=== PATIENT | female | born 1960 | race Caucasian/White ===

== ENCOUNTER → 2016-09-25 | Outpatient (REF) | payer MEDICAID | LOC: M LAB REF 09:16 | PROVIDERS: ATTEND Physician Assistant | DX: J02.9 Acute pharyngitis, unspecified (principal) ==

== ENCOUNTER 2017-03-12 01:14 | Emergency (ER) | payer OTHER, SELFPAY ==
[~2017-03-12] VITALS: Ht 160 cm; Wt 120.0 kg
[2017-03-12] MEDS ORDERED: MECL-68 PO (04:42)
[2017-03-12] MEDS ORDERED: FLON27.5 (04:42)
[2017-03-12 04:47] VITALS: BP 114/71
== END 2017-03-12 04:56 | disposition home or self-care (01) ==
LOC: M ED 02:11
DX: H81.399 Other peripheral vertigo, unspecified ear (principal); H91.93 Unspecified hearing loss, bilateral

== ENCOUNTER → 2017-04-03 | Outpatient (CLI) | payer OTHER ==
[~2017-04-03] MED LIST: FLON27.5; MECL-68 PO
[2017-04-03 07:26] LABS: BASO % 0.6 % (0.0-1.0); EOS # 0.3 K/mm3 (0.0-0.50); EOS % 3.4 % (0.0-3.0); LYMPH # 3.1 K/mm3 (1.5-4.5); LYMPH % 33.9 % (24.0-44.0); MEAN CORPUSCULAR HEMOGLOBIN 28.7 pg (27.0-33.0); MEAN CORPUSCULAR HGB CONC 33.3 g/dl (32.0-36.5); MEAN CORPUSCULAR VOLUME 86.3 fl (80.0-96.0); MONO # 0.4 K/mm3 (0.0-0.8); MONO % 4.5 % (0.0-5.0); NEUTROPHILS # 4.9 K/mm3 (1.8-7.7); NEUTROPHILS % 55.7 % (36.0-66.0); RED CELL DISTRIBUTION WIDTH 13.2 % (11.5-14.5); WHITE BLOOD COUNT 8.8 K/mm3 (4.0-10.0)
[2017-04-03 07:53] LABS: ALBUMIN 3.6 GM/DL (3.2-5.2); ALKALINE PHOSPHATASE 80 U/L (45-117); ALT/SGPT 26 U/L (12-78); ANION GAP 8 MEQ/L (8-16); AST/SGOT 16 U/L (15-37); BILIRUBIN,TOTAL 0.6 MG/DL (0.2-1.0); BLOOD UREA NITROGEN 14 MG/DL (7-18); CALCIUM LEVEL 9.1 MG/DL (8.5-10.1); CARBON DIOXIDE LEVEL 28 MEQ/L (21-32); CHLORIDE LEVEL 103 MEQ/L (98-107); CHOLESTEROL LEVEL 207 MG/DL (<200); CREATININE FOR GFR 0.82 MG/DL (0.55-1.02); GLOMERULAR FILTRATION RATE > 60.0 (>51); GLUCOSE, FASTING 103 MG/DL (70-105); POTASSIUM SERUM 4.5 MEQ/L (3.5-5.1); SODIUM LEVEL 139 MEQ/L (136-145); TOTAL PROTEIN 7.2 GM/DL (6.4-8.2); TRIGLYCERIDES LEVEL 185 MG/DL (<150)
== END ==
LOC: M LAB 06:33
PROVIDERS: ATTEND Physician Assistant Medical
DX: Z00.00 Encounter for general adult medical examination without abnormal findings (principal)

== ENCOUNTER → 2017-04-20 | Outpatient (REF) | payer OTHER | LOC: M SFHCWAGY 15:43 | PROVIDERS: ATTEND Nurse Practitioner Women's Health | DX: Z12.4 Encounter for screening for malignant neoplasm of cervix (principal) ==

== ENCOUNTER → 2017-05-08 | Outpatient (CLI) | payer OTHER ==
--- NOTE | 2017-05-08 19:45 | REP ---
BASELINE MAMMOGRAM: CLINICAL HISTORY: Breast cancer in mother at age 70. MLO and CC views of both breasts are performed. Mild scattered fibroglandular tissue is seen in a fairly symmetric pattern bilaterally. There is an oval nodule in the upper outer quadrant of the right breast measuring 7 mm in diameter. Margins appear fairly well defined. There is probable intramammary lymph node in the upper outer quadrant of the left breast which appears to have a lucent center. No other mass or clustered microcalcifications are seen. IMPRESSION: ACR 0 incomplete. Oval 7 mm nodule upper outer quadrant of the right breast. Recommend spot compression views and ultrasound to further evaluate. BI-RADS/ACR category 0 mammogram, incomplete. Additional imaging and/or prior images are needed before a final assessment can be assigned. This mammogram was interpreted with the aid of an FDA-approved computer-aided detection system. The patient states she had a clinical breast exam in 04/2017. The patient letter being requested is M0.
== END ==
LOC: M WHC 16:06
PROVIDERS: ATTEND Nurse Practitioner Women's Health
DX: Z12.31 Encounter for screening mammogram for malignant neoplasm of breast (principal); Z80.3 Family history of malignant neoplasm of breast

== ENCOUNTER → 2017-05-11 | Outpatient (CLI) | payer OTHER ==
--- NOTE | 2017-05-11 16:43 | REP ---
DIAGNOSTIC MAMMOGRAM RIGHT BREAST WITH RIGHT BREAST ULTRASOUND: Diagnostic mammogram of the right breast is performed. Spot compression views are obtained and correlated with the recent mammogram of 05/08/2017. These confirm the presence of an oval nodule. Margins are primarily well-developed and smoothly marginated. Maximum diameter 7 mm. Real-time sonographic evaluation of the upper outer quadrant right breast performed. No definite sonographic correlate is visualized with no definite cystic or solid nodule. IMPRESSION: ACR 4 suspicious. Oval nodule 7 mm in diameter is well defined but cannot be seen by ultrasound. Recommend stereotactic biopsy. BI-RADS/ACR category 4 mammogram. Suspicious abnormality - biopsy should be considered. Usually requires biopsy. This mammogram was interpreted with the aid of an FDA-approved computer-aided detection system. The patient letter being requested is M4. Signed by Coleman Bettencourt MD 05/11/2017 05:27 P
== END ==
LOC: M RAD 15:07
PROVIDERS: ATTEND Nurse Practitioner Women's Health
DX: Z12.31 Encounter for screening mammogram for malignant neoplasm of breast (principal)
CPT/HCPCS: 76642; G0206

== ENCOUNTER → 2017-06-11 | Outpatient (CLI) | payer MEDICAID, OTHER, SELFPAY ==
[~2017-06-11] MED LIST changes: +LIDOCAINE 1% MDV 20ML VIAL As Ordered ONE
--- NOTE | 2017-06-11 15:12 | REP ---
ULTRASOUND RIGHT BREAST. Real-time sonographic evaluation of the right breast is performed. The nodule in the upper outer quadrant seen on the prior mammogram of 05/11/2017 is not visualized by ultrasound. Stereotactic biopsy will be performed. Signed by Coleman Bettencourt MD 06/12/2017 05:14 P
--- NOTE | 2017-06-11 15:24 | REP ---
RIGHT BREAST, POSTBIOPSY: Postbiopsy mammogram right breast performed. Metallic clip is seen adjacent to the nodule on the right CC view. However, on the right ML view, the clip appears to be deployed about 4 cm inferior to the nodule. Signed by Coleman Bettencourt MD 06/12/2017 05:15 P
--- NOTE | 2017-06-12 08:53 | REP ---
STEREOTACTIC BREAST BIOPSY OF THE RIGHT BREAST: The procedure was performed by AMANDA Love, under the direct supervision of Dr. Bettencourt. The procedure along with its risks, benefits, and complications were discussed with patient prior to the examination. Informed consent was obtained both verbally and written. Following universal protocol, patient and site verification was performed with a time out prior to the procedure. After obtaining informed consent, the patient was positioned seated and the target within the right breast was localized using mammographic imaging. A craniocaudal approach was used. The skin was cleansed with ChloraPrep. Local infiltrative anesthesia was achieved using 1% lidocaine. A small incision was made. The Mammotome biopsy device was inserted and accuracy of position was confirmed with pre-fire imaging. A total of six core biopsy specimens were obtained. A marker clip was placed at the biopsy site. Following the procedure, the wound was cleansed and compressed. Steri-Strips and sterile gauze were applied and the patient was given post biopsy instructions. Patient tolerated the procedure well and had no immediate complications. IMPRESSION: Uncomplicated right breast stereotactic biopsy. Reviewed by AMANDA Ramos 06/12/2017 03:24 PEdited and Signed by Coleman Bettencourt MD 06/12/2017 05:09 P
== END ==
LOC: M RADPRO 12:11
PROVIDERS: ATTEND Surgery
DX: D24.1 Benign neoplasm of right breast (principal); Z87.891 Personal history of nicotine dependence

== ENCOUNTER → 2017-07-26 | Outpatient (CLI) | payer OTHER ==
[~2017-07-26] MED LIST changes: -LIDOCAINE 1% MDV 20ML VIAL As Ordered ONE
[2017-07-26 07:58] LABS: BASO # 0.1 10^3/uL (0.0-0.2); BASO % 0.6 % (0.0-1.0); EOS # 0.3 10^3/uL (0.0-0.50); EOS % 3.2 % (0.0-3.0); IMMATURE GRANULOCYTE % 0.4 % (0-0); LYMPH # 2.7 10^3/uL (1.5-4.5); LYMPH % 31.8 % (24.0-44.0); MEAN CORPUSCULAR HEMOGLOBIN 28.9 pg (27.0-33.0); MEAN CORPUSCULAR HGB CONC 33.2 g/dl (32.0-36.5); MEAN CORPUSCULAR VOLUME 87.2 fl (80.0-96.0); MONO # 0.6 10^3/uL (0.0-0.8); MONO % 7.2 % (0.0-5.0); NEUTROPHILS # 4.9 10^3/uL (1.8-7.7); NEUTROPHILS % 56.8 % (36.0-66.0); PLATELET COUNT, AUTOMATED 320 10^3/uL (150-450); RED CELL DISTRIBUTION WIDTH 12.9 % (11.5-14.5); WHITE BLOOD COUNT 8.6 10^3/uL (4.0-10.0)
[2017-07-26 08:39] LABS: ALBUMIN 3.7 GM/DL (3.2-5.2); ALBUMIN/GLOBULIN RATIO 1.06 (1.00-1.93); ALKALINE PHOSPHATASE 80 U/L (45-117); ALT/SGPT 27 U/L (12-78); ANION GAP 6 MEQ/L (8-16); AST/SGOT 16 U/L (7-37); BILIRUBIN,TOTAL 0.6 MG/DL (0.2-1.0); BLOOD UREA NITROGEN 15 MG/DL (7-18); CALCIUM LEVEL 8.8 MG/DL (8.5-10.1); CARBON DIOXIDE LEVEL 29 MEQ/L (21-32); CHLORIDE LEVEL 105 MEQ/L (98-107); CHOLESTEROL LEVEL 201 MG/DL (<200); CREATININE FOR GFR 0.85 MG/DL (0.55-1.02); GLOMERULAR FILTRATION RATE > 60.0 (>51); GLUCOSE, FASTING 106 MG/DL (70-105); POTASSIUM SERUM 4.4 MEQ/L (3.5-5.1); SODIUM LEVEL 140 MEQ/L (136-145); TOTAL PROTEIN 7.2 GM/DL (6.4-8.2); TRIGLYCERIDES LEVEL 123 MG/DL (<150)
== END ==
LOC: M LAB 07:16
PROVIDERS: ATTEND Physician Assistant Medical
DX: E78.2 Mixed hyperlipidemia (principal)

== ENCOUNTER → 2018-03-18 | Outpatient (CLI) | payer OTHER | LOC: M WHC 08:57 | DX: N95.0 Postmenopausal bleeding (principal); R93.8 Abnormal findings on diagnostic imaging of other specified body structures | CPT/HCPCS: 76830 ==

== ENCOUNTER → 2020-03-14 | Outpatient (REF) | payer OTHER ==
[~2020-03-14] MED LIST changes: -MECL-68 PO; +MECL1TAB31 PO
== END ==
LOC: M LAB REF 16:01
PROVIDERS: ATTEND Physician Assistant
DX: R10.814 Left lower quadrant abdominal tenderness (principal)

== ENCOUNTER → 2020-03-22 | Outpatient (CLI) | payer OTHER ==
[~2020-03-22] MED LIST changes: +IBUP80TA PO; +PERCOCET PO
--- NOTE | 2020-03-22 14:19 | REP ---
PELVIC ULTRASOUND: Real-time sonographic evaluation of pelvis performed. Transabdominal and endovaginal technique is utilized. Bladder measures 4.5 x 3.1 x 2.6 cm. The uterus measures 7.1 x 5.1 x 5.9 cm. Once again, there is significant endometrial thickening with diffuse heterogeneity and lobulated margins of the endometrium. Maximum thickness is 24 mm. On the prior study of 03/18/2018, maximum thickness was 21 mm. The uterus is retroverted. Echogenic area on the right adjacent to the thickened endometrium measures 2.0 x 2.2 x 1.9 cm, within the myometrium. This has increased in size compared to the prior study. There is internal blood flow with Doppler evaluation. Anteriorly, there appears to be a small fibroid 1.6 x 1.1 x 1.1 cm. The ovaries are not visualized. There is mild free fluid. IMPRESSION: Thickened heterogeneous endometrium with a maximum AP thickness 24 mm, has mildly increased since prior study. There is also mild increase in size of the focal echogenic area adjacent to the right endometrial margin. Findings may indicate endometrial hyperplasia or neoplasm. Recommend endometrial sampling.
== END ==
LOC: M WHC 09:26
PROVIDERS: ATTEND Obstetrics & Gynecology
DX: R93.5 Abnormal findings on diagnostic imaging of other abdominal regions, including retroperitoneum (principal); N95.0 Postmenopausal bleeding

== ENCOUNTER 2020-04-21 06:35 | Day surgery (SDC) | payer OTHER ==
[~2020-04-21 06:35] MED LIST changes: -IBUP80TA PO; -PERCOCET PO
[2020-04-21] MEDS ORDERED: LIDOCAINE 2% 100MG/5ML SDV (FOR ANES.) ONE (06:49)
[2020-04-21] MEDS ORDERED: fentaNYL 100 MCG/2 ML INJECTION (J3010) ONE (06:49)
[2020-04-21] MEDS ORDERED: propofoL 200 MG/20 ML VIAL ONE (06:49)
[2020-04-21] MEDS ORDERED: KETOROLAC 60MG 2ML VIAL ONE (06:49)
[2020-04-21] MEDS ORDERED: ONDANSETRON 4MG/2ML VIAL ONE (06:49)
[2020-04-21] MEDS ORDERED: dexameTHASONE 4 MG/ML 1ML VIAL (J1100 PER 1MG) ONE (06:49)
[2020-04-21] MEDS ORDERED: MIDAZOLAM INJ 2MG/2ML VIAL (J2250 PER 1MG) ONE (06:49)
[2020-06-19 08:45] LABS: HEMATOCRIT 38.2 % (36.0-47.0); HEMOGLOBIN 12.4 g/dl (12.0-15.5); MEAN CORPUSCULAR HEMOGLOBIN 29.2 pg (27.0-33.0); MEAN CORPUSCULAR HGB CONC 32.5 g/dl (32.0-36.5); MEAN CORPUSCULAR VOLUME 89.9 fl (80.0-96.0); PLATELET COUNT, AUTOMATED 289 10^3/uL (150-450); RED BLOOD COUNT 4.25 10^6/uL (4.00-5.40)
--- NOTE | 2020-06-24 13:43 | RO ---
DATE OF OPERATION: 04/21/2020 INDICATIONS FOR PROCEDURE: Rehana is a 60-year-old female who presented to the OR with postmenopausal bleeding. After extensive counseling, the decision was made to proceed with dilation and curettage (D&C) hysteroscopy. PREOPERATIVE DIAGNOSIS: Postmenopausal bleeding. POSTOPERATIVE DIAGOSES: * Postmenopausal bleeding. * Large endometrial polyp; cannot rule out a fibroid. Slightly distorted cavity. PROCEDURES: * Dilation and curettage (D&C). * Hysteroscopy. * Polypectomy. ANESTHESIA: General. SURGEON: Leroy Barnes D.O. COMPLICATIONS: None. ESTIMATED BLOOD LOSS: 20 mL. SPECIMENS SENT TO THE LAB: Endometrial curetting and endometrial polyp. DESCRIPTION OF PROCEDURE: After obtaining informed consent, the patient was taken to the operating room where general anesthetic was found to be adequate. She was then prepped and draped in the usual sterile fashion in the dorsolithotomy position. At this point, a straight catheter of bladder was performed for approximately 100 mL of clear urine. We then placed a weighted speculum in the posterior next to the vagina. Using a Anderson retractor, the anterior lip of the cervix was then grasped with a single-toothed tenaculum. The uterus was sounded to approximately 7 cm in size. The cervix was serially dilated. A hysteroscope was inserted with the above-noted findings. At this point, the hysteroscope was removed. A polyp forceps was used. A polypectomy was performed. Then a sharp curettage of the endometrial lining was then done. Good hemostasis noted. Patient tolerated the procedure well. She was then transferred to the recovery room in stable condition. LAVERNE
== END 2020-04-21 09:57 | disposition home or self-care (01) ==
LOC: M SDC 06:35
PROVIDERS: ATTEND Obstetrics & Gynecology
DX: N84.0 Polyp of corpus uteri (principal); N85.00 Endometrial hyperplasia, unspecified; N95.0 Postmenopausal bleeding
CPT/HCPCS: 36415; 58558; 85027; 86850; 86900; 86901; 88305; J1100; J1885; J2250; J2405; J3010

== ENCOUNTER → 2020-06-11 | Outpatient (CLI) | payer OTHER ==
[~2020-06-11] MED LIST changes: +IBUP80TA PO; +PERCOCET PO
== END ==
LOC: M LABSMTC 09:28
PROVIDERS: ATTEND Anesthesiology
DX: Z01.812 Encounter for preprocedural laboratory examination (principal); Z20.828 Contact with and (suspected) exposure to other viral communicable diseases
CPT/HCPCS: C9803; U0003

== ENCOUNTER 2020-06-16 06:14 | Day surgery (SDC) | payer OTHER ==
[~2020-06-16] VITALS: Ht 157.5 cm; Wt 116.1 kg
[2020-06-16] VITALS (9 sets, daily range): BP systolic 106–131; BP diastolic 58–78
[~2020-06-16 06:14] MED LIST changes: +ACETAMINOPHEN *IV* 1,000 MG IV ONE; -IBUP80TA PO; +LR 1,000 ML IV ONE; -PERCOCET PO; +ceFAZolin SOD 2 GM in IV 1 EA IV ONE
[2020-06-16] MEDS ORDERED: FLUORESCEIN 10% (100MG/ML) 5 ML VIAL As Ordered ONE (06:41)
[2020-06-16] MEDS ORDERED: BUPIVACAINE/EPIN 0.25% 30 ML VIAL As Ordered ONE (06:41)
[2020-06-16 06:45] LABS: HEMATOCRIT 41.2 % (36.0-47.0); HEMOGLOBIN 13.5 g/dl (12.0-15.5); MEAN CORPUSCULAR HGB CONC 32.8 g/dl (32.0-36.5); MEAN CORPUSCULAR VOLUME 88.6 fl (80.0-96.0); PLATELET COUNT, AUTOMATED 315 10^3/uL (150-450); RED BLOOD COUNT 4.65 10^6/uL (4.00-5.40); WHITE BLOOD COUNT 9.2 10^3/uL (4.0-10.0)
[2020-06-16] MEDS ORDERED: MIDAZOLAM INJ 2MG/2ML VIAL (J2250 PER 1MG) As Ordered ONE (06:46)
[2020-06-16] MEDS ORDERED: ePHEDrine SULFATE 25 MG/5 ML(5MG/ML) SYRINGE As Ordered ONE (06:46)
[2020-06-16] MEDS ORDERED: PHENYLephrine HCL 500 MCG/5 ML (100MCG/ML) SYRINGE (J2370) As Ordered ONE (06:46)
[2020-06-16] MEDS ORDERED: fentaNYL 250 MCG/5 ML INJECTION (J3010) As Ordered ONE (06:46)
[2020-06-16] MEDS ORDERED: propofoL 200 MG/20 ML VIAL As Ordered ONE (06:47)
[2020-06-16] MEDS ORDERED: SUGAMMADEX SODIUM 500 MG/5 ML VIAL (BRIDION) As Ordered ONE (06:47)
[2020-06-16] MEDS ORDERED: ONDANSETRON 4MG/2ML VIAL As Ordered ONE (06:47)
[2020-06-16] MEDS ORDERED: ROCURONIUM BROMIDE 50 MG/5 ML VIAL As Ordered ONE (06:47)
[2020-06-16] MEDS ORDERED: LIDOCAINE 2% 100MG/5ML SDV (FOR ANES.) As Ordered ONE (06:47)
[2020-06-16] MEDS ORDERED: dexameTHASONE 4 MG/ML 1ML VIAL (J1100 PER 1MG) As Ordered ONE (06:47)
[2020-06-16 07:12] LABS: BLOOD UREA NITROGEN 11 MG/DL (7-18); CALCIUM LEVEL 9.2 MG/DL (8.8-10.2); CARBON DIOXIDE LEVEL 27 MEQ/L (21-32); CHLORIDE LEVEL 105 MEQ/L (98-107); CREATININE FOR GFR 0.85 MG/DL (0.55-1.30); GLOMERULAR FILTRATION RATE > 60.0 (>45); GLUCOSE, FASTING 100 MG/DL (70-100); SODIUM LEVEL 137 MEQ/L (136-145)
[2020-06-16] MEDS ORDERED: ACETAMINOPHEN 1000MG 100ML IV BTL (OFIRMEV) (J0131 PER 10MG) As Ordered ONE (07:54)
[2020-06-16] MEDS ORDERED: HYDROmorphone HCL 2 MG/ML 1ML VIAL (J1170) As Ordered ONE (08:26)
[2020-06-16] MEDS ORDERED: PERCOCET 5MG/325MG TAB PO PRN (09:15)
[2020-06-16] MEDS ORDERED: ONDANSETRON 4MG/2ML VIAL IV PRN ×2 (09:15→09:45)
[2020-06-16] MEDS ORDERED: PERCOCET PO (09:16)
[2020-06-16] MEDS ORDERED: IBUP80TA PO (09:16)
[2020-06-16] MEDS ORDERED: oxyCODONE 5MG TAB PO PRN (09:45)
[2020-06-16] MEDS ORDERED: LR 1,000 ML IV SCH (09:45)
[2020-06-16] MEDS ORDERED: fentaNYL 100 MCG/2 ML INJECTION (J3010) IV PRN (09:45)
[2020-06-16] MEDS ORDERED: METOCLOPRAMIDE INJ 10MG/2ML VIAL (J2765 PER 1) IV PRN (09:45)
[2020-06-16] MEDS: KETOROLAC 30 MG/ML 1ML VIAL IV SCH ×3 (09:53→21:48)
[2020-06-16] MEDS: MEPERIDINE INJ 25 MG/ML VIAL (J2175) IV PRN ×2 (09:54→10:00)
[2020-06-16] MEDS: LR 1,000 ML IV SCH ×2 (10:57→17:51)
[2020-06-16] MEDS: DOCUSATE SODIUM 100 MG CAP PO SCH ×2 (10:59→21:48)
[2020-06-17] MEDS: LR 1,000 ML IV SCH ×2 (00:39→09:03)
[2020-06-17 02:00] VITALS: BP 114/68
[2020-06-17] MEDS: KETOROLAC 30 MG/ML 1ML VIAL IV SCH (04:05)
[2020-06-17 06:00] VITALS: BP 132/79
[2020-06-17] MEDS: DOCUSATE SODIUM 100 MG CAP PO SCH (09:03)
[2020-06-17 10:00] VITALS: BP 122/59
[2020-06-17] MEDS ORDERED: IBUPROFEN 800 MG TAB PO SCH (12:00)
--- NOTE | 2020-06-22 14:27 | RO ---
DATE OF OPERATION: 06/16/2020 Rehana is a 60-year-old female with an extensive history of postmenopausal bleeding, found to have complex endometrial hyperplasia on a dilatation and curettage (D and C) specimen. She also has morbid obesity. After counseling, a decision was made to proceed with robotic-assisted total hysterectomy, bilateral salpingo-oophorectomy, and pelvic washing as well as cystoscopy. PREOPERATIVE DIAGNOSES: 1. Postmenopausal bleeding 2. Complex endometrial hyperplasia. 3. Obesity. POSTOPERATIVE DIAGNOSES: 1. Postmenopausal bleeding 2. Complex endometrial hyperplasia. 3. Obesity. 4. Large left ovarian cyst. PROCEDURES: 1. Robotic-assisted total hysterectomy. 2. Bilateral salpingo-oophorectomy. 3. Pelvic washing. 4. Cystoscopy. ANESTHESIA: General. SURGEON: Dr. Cannon STOCK MOVER: Lisa Edward COMPLICATIONS: None. ESTIMATED BLOOD LOSS: Less than 20 mL. FINDINGS: An enlarged uterus as well as an enlarged left ovarian cyst. Normal atrophic-appearing right ovary. On cystoscopy, bilateral ureteral jets noted. No evidence of any bladder injury noted. DESCRIPTION OF PROCEDURE: After obtaining informed consent, patient was taken to the operating room, where general anesthetic was found to be adequate. She was then draped and prepped in the usual sterile fashion in the dorsal lithotomy position. At this point, a Jain catheter was placed in the bladder for drainage. We then placed a speculum in the posterior fornix of the vagina using a Tabor retractor, the anterior lip of the cervix was then grasped with a single-tooth tenaculum. The uterus was sounded to approximately 9 cm in length. A UMI2 uterine manipulator was placed. Attention was then turned to the abdomen, where an 8 mm infraumbilical incision was made. Using the Veress needle, the abdomen was insufflated with CO2 gas to approximately 3.5 liters. We then placed two left lateral ports 8 mm in size for robotic arm, two in the assist port on the right side. An 8 mm lateral port was placed for robotic arm 1. Patient was then placed in steep Trendelenburg. The robot was brought to the patient's right side. The robot was docked in the usual fashion. Proper targeting was done after placement of the camera port. Then the remaining arms were then docked. We then placed a bipolar grasper in arm 2 and a vessel sealer in arm 1. I scrubbed and went to the surgeon console and began the surgery. The pelvis and abdomen were inspected thoroughly. Pelvic washing performed. We then identified the infundibulopelvic ligament, which was cauterized and cut using the vessel sealer. Serial bite was taken to remove the entire tube down to the uterosacral ligament. Anterior leaf of the broad ligament was dissected to create a bladder flap. The opposite side was done in similar fashion. The bladder was pushed completely out of the operative field. After making sure the arteries were secure, we then removed the vessel sealer, introduced an Endoshear, and anterior and posterior colpotomy was then performed. The uterus as well as both ovaries and tubes were removed through the vagina. The vaginal cuff was then closed in a running fashion using a 2-0 V-lock suture in a running fashion. The peritoneum over the vaginal cuff was also closed. Pelvis was copiously irrigated with normal saline and suctioned down. Then 1 mL of fluorescein was given by the anesthesiologist to assist in a cystoscopy. I then rescrubbed, went to the patient's bedside, retrograde filled the bladder with 250 mL of normal saline. Catheter was removed. Hysteroscope was inserted. Bilateral ureteral jets noted. No evidence of any bladder injury noted. At this point, the cystoscope was removed. Jain catheter was placed back in the bladder to drain the bladder. We turned our attention to the abdomen, where all the robotic trocars were removed, and the ports were closed using 3-0 Vicryl in subcuticular fashion. Then 0.25% Marcaine was placed at the sites for postoperative pain. Patient tolerated the procedure well. She was then transferred to the recovery room in stable condition. LAVERNE
== END 2020-06-17 14:36 | disposition home or self-care (01) ==
LOC: M SDC 06:14 → M MSPAV 10:52 → M SDC 06-17 14:36
PROVIDERS: ATTEND Obstetrics & Gynecology
DX: N95.0 Postmenopausal bleeding (principal); N85.00 Endometrial hyperplasia, unspecified; N84.0 Polyp of corpus uteri; D25.9 Leiomyoma of uterus, unspecified; N83.202 Unspecified ovarian cyst, left side; E66.9 Obesity, unspecified; Z87.891 Personal history of nicotine dependence
CPT/HCPCS: 36415; 58571; 80048; 85027; 86850; 86900; 86901; 88108; 88307; 88313; 96361; 96374; 96375; 96376; J0131; J0690; J1100; J1170; J1885; J2175; J2250; J2370; J2405; J3010; S2900

== ENCOUNTER 2021-09-24 11:19 | Emergency (ER) | payer OTHER ==
[~2021-09-24] VITALS: Ht 160 cm; Wt 122.3 kg
[~2021-09-24 11:19] MED LIST changes: -ACETAMINOPHEN *IV* 1,000 MG IV ONE; +IBUP80TA PO; -LR 1,000 ML IV ONE; +PERCOCET PO; -ceFAZolin SOD 2 GM in IV 1 EA IV ONE
[2021-09-24 13:18] LABS: BASO % 0.4 % (0.0-1.0); EOS # 0.2 10^3/uL (0.0-0.5); EOS % 1.6 % (0.0-3.0); HEMATOCRIT 39.4 % (36.0-47.0); LYMPH # 2.2 10^3/uL (1.5-5.0); LYMPH % 23.1 % (24.0-44.0); MEAN CORPUSCULAR HEMOGLOBIN 28.8 pg (27.0-33.0); MEAN CORPUSCULAR VOLUME 87.4 fl (80.0-96.0); MONO # 0.5 10^3/uL (0.0-0.8); MONO % 5.3 % (2.0-8.0); NEUTROPHILS # 6.5 10^3/uL (1.5-8.5); NEUTROPHILS % 69.3 % (36.0-66.0); PLATELET COUNT, AUTOMATED 305 10^3/uL (150-450); RED BLOOD COUNT 4.51 10^6/uL (4.00-5.40); WHITE BLOOD COUNT 9.4 10^3/uL (4.0-10.0)
[2021-09-24 13:41] LABS: ALBUMIN 3.7 GM/DL (3.2-5.2); ALT/SGPT 29 U/L (12-78); BILIRUBIN,DIRECT 0.1 MG/DL (0.0-0.2); BILIRUBIN,TOTAL 0.6 MG/DL (0.2-1.0); BLOOD UREA NITROGEN 13 MG/DL (7-18); CALCIUM LEVEL 9.1 MG/DL (8.8-10.2); CARBON DIOXIDE LEVEL 25 MEQ/L (21-32); CHLORIDE LEVEL 107 MEQ/L (98-107); CREATININE FOR GFR 0.84 MG/DL (0.55-1.30); GLOMERULAR FILTRATION RATE > 60.0 (>45); GLUCOSE, FASTING 109 MG/DL (70-100); LIPASE 36 U/L (73-393); POTASSIUM SERUM 4.1 MEQ/L (3.5-5.1); SODIUM LEVEL 138 MEQ/L (136-145); TOTAL PROTEIN 7.6 GM/DL (6.4-8.2)
[2021-09-24 17:18] VITALS: BP 187/88
[2021-09-25] MEDS ORDERED: PERC5TAB12 PO (06:54)
[2021-09-25] MEDS ORDERED: FLOM0.4C39 PO (06:54)
[2021-09-25] MEDS ORDERED: ZOFR4TAB16 PO (06:54)
== END 2021-09-24 17:21 | disposition home or self-care (01) ==
LOC: M ED 11:19
DX: N13.9 Obstructive and reflux uropathy, unspecified (principal); N20.0 Calculus of kidney; N28.1 Cyst of kidney, acquired; K76.0 Fatty (change of) liver, not elsewhere classified

== ENCOUNTER 2021-09-24 23:55 | Emergency (ER) | payer OTHER ==
[~2021-09-24] VITALS: Ht 160 cm; Wt 122.4 kg
[2021-09-24 23:57] VITALS: BP 138/80
[2021-09-25] MEDS ORDERED: PERC5TAB12 PO (06:54)
[2021-09-25] MEDS ORDERED: ZOFR4TAB16 PO (06:54)
[2021-09-25] MEDS ORDERED: FLOM0.4C39 PO (06:54)
== END 2021-09-25 07:03 | disposition home or self-care (01) ==
LOC: MERGE 23:55 → M ED 23:55
DX: N13.9 Obstructive and reflux uropathy, unspecified (principal); N20.0 Calculus of kidney; R10.9 Unspecified abdominal pain; R11.2 Nausea with vomiting, unspecified; Z87.891 Personal history of nicotine dependence

== ENCOUNTER → 2021-10-05 | Outpatient (CLI) | payer OTHER ==
[~2021-10-05] MED LIST changes: +FLOM0.4C39 PO; +PERC5TAB12 PO; +ZOFR4TAB16 PO
== END ==
LOC: M PLAIMG 08:55
PROVIDERS: ATTEND Physician Assistant
DX: N20.1 Calculus of ureter (principal)

== ENCOUNTER → 2021-10-19 | Outpatient (CLI) | payer OTHER | LOC: M PLAIMG 08:52 | PROVIDERS: ATTEND Physician Assistant | DX: N20.0 Calculus of kidney (principal) ==

== ENCOUNTER → 2021-10-19 | Outpatient (REF) | payer OTHER | LOC: M SMT 16:47 | PROVIDERS: ATTEND Physician Assistant | DX: N20.0 Calculus of kidney (principal) ==

== ENCOUNTER → 2021-10-24 | Outpatient (CLI) | payer OTHER | LOC: M PLAIMG 08:59 | PROVIDERS: ATTEND Physician Assistant | DX: N20.0 Calculus of kidney (principal) ==

== ENCOUNTER → 2021-11-04 | Outpatient (CLI) | payer OTHER ==
[2021-11-04 15:06] LABS: BASO # 0.1 10^3/uL (0.0-0.2); BASO % 0.6 % (0.0-1.0); EOS # 0.3 10^3/uL (0.0-0.5); EOS % 2.9 % (0.0-3.0); HEMATOCRIT 41.9 % (36.0-47.0); HEMOGLOBIN 13.6 g/dl (12.0-15.5); LYMPH # 2.7 10^3/uL (1.5-5.0); LYMPH % 27.6 % (24.0-44.0); MEAN CORPUSCULAR HEMOGLOBIN 28.7 pg (27.0-33.0); MEAN CORPUSCULAR HGB CONC 32.5 g/dl (32.0-36.5); MEAN CORPUSCULAR VOLUME 88.4 fl (80.0-96.0); MONO # 0.7 10^3/uL (0.0-0.8); MONO % 6.7 % (2.0-8.0); NEUTROPHILS % 61.7 % (36.0-66.0); PLATELET COUNT, AUTOMATED 338 10^3/uL (150-450); RED BLOOD COUNT 4.74 10^6/uL (4.00-5.40); WHITE BLOOD COUNT 9.7 10^3/uL (4.0-10.0)
[2021-11-04 15:07] LABS: APPEARANCE, URINE CLEAR (CLEAR); BACTERIA, URINE AUTO NEGATIVE (NEGATIVE); BILIRUBIN, URINE AUTO NEGATIVE (NEGATIVE); BLOOD, URINE BLOOD 2+ (NEGATIVE); COLOR, URINE STRAW (YELLOW); GLUCOSE, URINE (UA) AUTO NEGATIVE (NEGATIVE); KETONE, URINE AUTO NEGATIVE (NEGATIVE); LEUKOCYTE ESTERASE, URINE AUTO TRACE (NEGATIVE); NITRITE, URINE AUTO NEGATIVE (NEGATIVE); PROTEIN, URINE AUTO NEGATIVE (NEGATIVE); RBC, URINE AUTO 4 /HPF (0-3); SPECIFIC GRAVITY URINE AUTO 1.005 (1.002-1.035); SQUAMOUS EPITHELIAL CELL UR AU 0 /HPF (0-6); UROBILINOGEN, URINE AUTO 0.2 mg/dL (0.0-2.0); WBC, URINE AUTO 5 /HPF (0-3)
[2021-11-04 15:29] LABS: BLOOD UREA NITROGEN 13 MG/DL (7-18); CALCIUM LEVEL 9.2 MG/DL (8.8-10.2); CARBON DIOXIDE LEVEL 27 MEQ/L (21-32); CHLORIDE LEVEL 104 MEQ/L (98-107); CREATININE FOR GFR 0.86 MG/DL (0.55-1.30); GLOMERULAR FILTRATION RATE > 60.0 (>45); GLUCOSE, FASTING 99 MG/DL (70-100); POTASSIUM SERUM 4.2 MEQ/L (3.5-5.1); SODIUM LEVEL 137 MEQ/L (136-145)
== END ==
LOC: M RAD 14:25
PROVIDERS: ATTEND Physician Assistant
DX: Z01.818 Encounter for other preprocedural examination (principal)

== ENCOUNTER → 2021-11-07 | Outpatient (CLI) | payer OTHER | LOC: M LABSMTC 10:12 | PROVIDERS: ATTEND Anesthesiology | DX: Z01.812 Encounter for preprocedural laboratory examination (principal); Z20.822 Contact with and (suspected) exposure to COVID-19 ==

== ENCOUNTER 2021-11-11 06:07 | Day surgery (SDC) | payer OTHER ==
[~2021-11-11] VITALS: Ht 160 cm; Wt 118.9 kg
[~2021-11-11 06:07] MED LIST changes: +LIDOCAINE 1% MDV 20ML VIAL SQ PRN; +LR 1,000 ML IV ONE; +ceFAZolin SOD 2 GM in IV 1 EA IV ONE
[2021-11-11] MEDS ORDERED: CONRAY-60 60% 50ML VIAL (Q9961) As Ordered ONE (07:11)
[2021-11-11] MEDS ORDERED: MIDAZOLAM INJ 2MG/2ML VIAL (J2250 PER 1MG) As Ordered ONE (07:23)
[2021-11-11] MEDS ORDERED: propofoL 200 MG/20 ML VIAL As Ordered ONE (07:23)
[2021-11-11] MEDS ORDERED: ONDANSETRON 4MG/2ML VIAL As Ordered ONE (07:23)
[2021-11-11] MEDS ORDERED: dexameTHASONE 4 MG/ML 1ML VIAL (J1100 PER 1MG) As Ordered ONE (07:23)
[2021-11-11] MEDS ORDERED: LIDOCAINE 2% 100MG/5ML SDV (FOR ANES.) As Ordered ONE (07:23)
[2021-11-11] MEDS ORDERED: fentaNYL 100 MCG/2 ML INJECTION As Ordered ONE (07:24)
[2021-11-11] MEDS ORDERED: METOCLOPRAMIDE INJ 10MG/2ML VIAL (J2765 PER 1) As Ordered ONE (07:59)
[2021-11-11] MEDS ORDERED: ACETAMINOPHEN 1000MG 100ML IV BTL (OFIRMEV) (J0131 PER 10MG) As Ordered ONE (08:07)
[2021-11-11] MEDS ORDERED: PHENYLephrine 500MCG 5ML (100MCG/ML) SYRINGE As Ordered ONE (08:14)
[2021-11-11] MEDS ORDERED: oxyBUTYnin 5 MG TAB PO PRN (08:55)
[2021-11-11] MEDS ORDERED: METOCLOPRAMIDE INJ 10MG/2ML VIAL (J2765 PER 1) IV PRN (08:55)
[2021-11-11] MEDS ORDERED: ONDANSETRON 4MG/2ML VIAL IV PRN (08:55)
[2021-11-11] MEDS ORDERED: PERCOCET 5MG/325MG TAB PO PRN ×2 (08:55)
[2021-11-11] MEDS ORDERED: fentaNYL 100 MCG/2 ML INJECTION IV PRN (08:55)
[2021-11-11] MEDS ORDERED: LR 1,000 ML IV SCH (08:55)
[2021-11-11] MEDS ORDERED: OXYB5TAB10 PO (09:09)
[2021-11-11 09:45] VITALS: BP 149/78
[2021-11-16 16:08] LABS: CA Oxalate Dihy 30 % (.); Ca Ox Monohydrate 70 % (.); Size 3x2 mm (.)
== END 2021-11-11 10:15 | disposition home or self-care (01) ==
LOC: M SDC 06:07
PROVIDERS: ATTEND Urology
DX: N13.2 Hydronephrosis with renal and ureteral calculous obstruction (principal); E66.9 Obesity, unspecified; Z86.16 Personal history of COVID-19
CPT/HCPCS: 52356; 74420; 82365; C1769; C1894; C2617; J0131; J0690; J1100; J2250; J2370; J2405; J2765; J3010; Q9961

== ENCOUNTER → 2022-01-17 | Outpatient (CLI) | payer OTHER ==
[~2022-01-17] MED LIST changes: -LIDOCAINE 1% MDV 20ML VIAL SQ PRN; -LR 1,000 ML IV ONE; +OXYB5TAB10 PO; -ceFAZolin SOD 2 GM in IV 1 EA IV ONE
== END ==
LOC: M WHC 07:47
PROVIDERS: ATTEND Pediatrics
DX: Z12.31 Encounter for screening mammogram for malignant neoplasm of breast (principal); N95.9 Unspecified menopausal and perimenopausal disorder; Z80.3 Family history of malignant neoplasm of breast

== ENCOUNTER → 2022-05-31 | Outpatient (CLI) | payer OTHER | LOC: M PLAIMG 14:39 | PROVIDERS: ATTEND Urology | DX: N20.0 Calculus of kidney (principal) ==

== ENCOUNTER → 2022-06-01 | Outpatient (CLI) | payer OTHER | LOC: M LABSMTC 09:11 | PROVIDERS: ATTEND Anesthesiology | DX: Z01.818 Encounter for other preprocedural examination (principal); Z11.52 Encounter for screening for COVID-19 ==

== ENCOUNTER 2022-06-06 07:45 | Day surgery (SDC) | payer OTHER ==
[~2022-06-06] VITALS: Ht 160 cm; Wt 117.5 kg
[~2022-06-06 07:45] MED LIST changes: +NS 1,000 ML IV ONE
[2022-06-06] MEDS ORDERED: LIDOCAINE 2% 100MG/5ML SDV (FOR ANES.) As Ordered ONE (07:49)
[2022-06-06] MEDS ORDERED: propofoL 200 MG/20 ML VIAL As Ordered ONE ×2 (07:49→09:14)
[2022-06-06 09:56] VITALS: BP 123/58
== END 2022-06-06 10:37 | disposition home or self-care (01) ==
LOC: M OPP 07:45
PROVIDERS: ATTEND Surgery
DX: Z12.11 Encounter for screening for malignant neoplasm of colon (principal); Z80.0 Family history of malignant neoplasm of digestive organs; D12.0 Benign neoplasm of cecum; D12.3 Benign neoplasm of transverse colon; K62.1 Rectal polyp; K57.30 Diverticulosis of large intestine without perforation or abscess without bleeding; Z87.442 Personal history of urinary calculi

== ENCOUNTER → 2023-05-30 | Outpatient (REF) | payer OTHER ==
[~2023-05-30] MED LIST changes: +MECL-209 PO; -MECL1TAB31 PO; -NS 1,000 ML IV ONE
[2023-05-30 20:46] LABS: ALKALINE PHOSPHATASE 85 U/L (46-116); ALT/SGPT 21 U/L (7.0-40); AST/SGOT 15 U/L (<34); BILIRUBIN,TOTAL 0.8 MG/DL (0.3-1.2); BLOOD UREA NITROGEN 15 MG/DL (9-23); CALCIUM LEVEL 9.3 MG/DL (8.3-10.6); CARBON DIOXIDE LEVEL 31 MMOL/L (20-31); CHLORIDE LEVEL 103 MMOL/L (98-107); CREATININE FOR GFR 0.75 MG/DL (0.55-1.30); GLOMERULAR FILTRATION RATE > 60.0 (>45); GLUCOSE, FASTING 98 MG/DL (74-106); POTASSIUM SERUM 5.1 MMOL/L (3.5-5.1); SODIUM LEVEL 141 MMOL/L (136-145); TOTAL PROTEIN 7.2 G/DL (5.7-8.2)
[2023-05-30 20:47] LABS: THYROID STIMULATING HORMONE 0.711 uIU/ML (0.55-4.78)
[2023-05-30 22:04] LABS: HEMOGLOBIN A1c 6.1 % (4.0-6.0)
== END ==
LOC: M LAB REF 16:30
PROVIDERS: ATTEND Pediatrics
DX: K76.0 Fatty (change of) liver, not elsewhere classified (principal); R73.03 Prediabetes; R03.0 Elevated blood-pressure reading, without diagnosis of hypertension

== ENCOUNTER → 2023-09-04 | Outpatient (CLI) | payer OTHER ==
[~2023-09-04] MED LIST changes: -OXYB5TAB10 PO; +OXYB5TAB11 PO
== END ==
LOC: M PLAIMG 15:11
PROVIDERS: ATTEND Urology
DX: N20.0 Calculus of kidney (principal)

== ENCOUNTER → 2023-12-18 | Outpatient (CLI) | payer OTHER ==
[~2023-12-18] MED LIST changes: -OXYB5TAB11 PO; +OXYB5TAB14 PO
== END ==
LOC: M WHC 14:06
PROVIDERS: ATTEND Pediatrics
DX: Z12.31 Encounter for screening mammogram for malignant neoplasm of breast (principal)

== ENCOUNTER → 2024-02-22 | Outpatient (REF) | payer OTHER ==
[2024-02-22 18:11] LABS: CREATININE, URINE 140.7 MG/DL; MALB URINE SIEMENS < 3.0 MG/L; MAU/CREAT RATIO 2.1 MCG/MG (0.0-30.0)
== END ==
LOC: M LAB REF 16:21
PROVIDERS: ATTEND Pediatrics
DX: R03.0 Elevated blood-pressure reading, without diagnosis of hypertension (principal)

== ENCOUNTER → 2024-06-30 | Outpatient (REF) | payer OTHER | LOC: M SFHCDERM 17:06 | PROVIDERS: ATTEND Physician Assistant | DX: L82.0 Inflamed seborrheic keratosis (principal) ==